=== PATIENT | female | born 1985 | race Caucasian/White ===

== ENCOUNTER 2023-01-31 23:06 | Emergency (ER) | payer MEDICAID, SELFPAY ==
[2023-01-31 23:11] VITALS: BP 115/63; PULSE 95; RESP 18; TEMP 36.9; O2SAT 100; BMI 39.5
[2023-02-01 00:18] VITALS: BP 105/45; PULSE 67; RESP 15; TEMP 36.4; O2SAT 99
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
--- OUTSIDE RECORDS SUMMARY | 2023-02-01 00:46 | XMS_ITS | Continuity of Care Document ---
Author Name Unknown Organization [facility] Address [address] [place] [phone]- Care Team Providers Care Compliance Advisor Name Role Phone Lonnie Oliveira MD [id number] Date[facility] - [facility] [address] [place] [id number] Attending Physician: Mckenzie Slaughter MD Admitting Physician: Mckenzie Slaughter MD Referring Physician: Lonnie Oliveira MD Allergies, Adverse Reactions, Alerts No Known Medication Allergies Medications acetaminophen 500 mg oral capsule 1 capsule = 500 mg, By Mouth, Every 4 hours, PRN for pain, # 60 capsule, 3 Refills, Acute 09/13/22 14:30:00 EDT, 09/13/21 14:28:00 EDT, Capsule, [facility] #[id number], Partial fill upon patientrequest if the prescription is for a schedule II op... Start Date: 09/13/21 Stop Date: 09/13/22 Status: Ordered diclofenac 1% topical gel 1 application, Topically, 4 times a day, # 100 Gm, 3 Refills, Maintenance, 09/13/21 14:29:00 EDT, Gel, [facility] #[id number], Partial fill upon patient request if the prescription is for a schedule II opioid drug., 163, cm, 09/13/21 13:54:00 EDT... Start Date: 09/13/21 Status: Ordered naproxen 500 mg oral delayed release tablet 1 tablet = 500 mg, By Mouth, 2 times a day, # 60 tablet, 3 Refills, Acute 09/13/22 14:29:00 EDT, 09/13/21 14:28:00 EDT, EC Tablet, [facility] #[id number], Partial fill upon patient request if the prescription is for a schedule II opioid drug., 16... Start Date: 09/13/21 Stop Date: 09/13/22 Status: Ordered Problem List Condition Effective Dates Status Health Status Inform ant Greater trochanteric bursitis(Confirmed) Active Obese class II(Confirmed) Active
--- OUTSIDE RECORDS SUMMARY | 2023-02-01 00:46 | XMS_ITS | Continuity of Care Document ---
Author Name Unknown Organization [facility] Address [address] [place] [id number]- Care Team Providers Care Electric Detector Operator Name Role Phone Tee MATOS, Lonnie Lagunas [id number] [address] [place] [phone]- Attending Physician: Pedro Pablo Perez MD Admitting Physician: Ana MATOS, Pedro Pablo Carnes Allergies, Adverse Reactions, Alerts No Known Medication Allergies Medications acetaminophen 500 mg oral capsule 1 capsule = 500 mg, By Mouth, Every 4 hours, PRN for pain, # 60 capsule, 3 Refills, Acute 09/13/22 14:30:00 EDT, 09/13/21 14:28:00 EDT, Capsule, [id number], Partial fill upon patientrequest if the prescription is for a schedule II op... Start Date: 09/13/21 Stop Date: 09/13/22 Status: Ordered diclofenac 1% topical gel 1 application, Topically, 4 times a day, # 100 Gm, 3 Refills, Maintenance, 09/13/21 14:29:00 EDT, Gel, [facility] #[id number], Partial fill upon patient request if the prescription is for a schedule II opioid drug., 163, cm, 09/13/21 13:54:00 EDT... Start Date: 09/13/21 Status: Ordered naproxen 500 mg oral delayed release tablet 1 tablet = 500 mg, By Mouth, 2 times a day, # 60 tablet, 3 Refills, Acute 09/13/22 14:29:00 EDT, 09/13/21 14:28:00 EDT, EC Tablet, [facility] #[id number], Partial fill upon patient request if the prescription is for a schedule II opioid drug., 16... Start Date: 09/13/21 Stop Date: 09/13/22 Status: Ordered Problem List Condition Effective Dates Status Health Status Inform ant Greater trochanteric bursitis(Confirmed) Active Obese class II(Confirmed) Active
--- OUTSIDE RECORDS SUMMARY | 2023-02-01 00:46 | XMS_ITS | Continuity of Care Document ---
Author Name Unknown Organization [facility] Address [address] [place] [phone]- Care Team Providers Care Contract Negotiation Manager Name Role Phone Tee MATOS, Lonnie Lagunas [id number] [address] [place] [address]- Allergies, Adverse Reactions, Alerts No Known Medication Allergies Medications acetaminophen 500 mg oral capsule 1 capsule = 500 mg, By Mouth, Every 4 hours, PRN for pain, # 60 capsule, 3 Refills, Acute 09/13/22 14:30:00 EDT, 09/13/21 14:28:00 EDT, Capsule, [facility] #[id number], Partial fill upon patientrequest if the prescription is for a schedule II op... Start Date: 09/13/21 Stop Date: 09/13/22 Status: Ordered diclofenac 1% topical gel 1 application, Topically, 4 times a day, # 100 Gm, 3 Refills, Maintenance, 09/13/21 14:29:00 EDT, Gel, [facility] #[id number], Partial fill upon patient request if the prescription is for a schedule II opioid drug., 163, cm, 09/13/21 13:54:00 EDT... Start Date: 09/13/21 Status: Ordered naproxen 500 mg oral delayed release tablet 1 tablet = 500 mg, By Mouth, 2 times a day, # 60 tablet, 3 Refills, Acute 09/13/22 14:29:00 EDT, 09/13/21 14:28:00 EDT, EC Tablet, [facility] #[id number], Partial fill upon patient request if the prescription is for a schedule II opioid drug., 16... Start Date: 09/13/21 Stop Date: 09/13/22 Status: Ordered Problem List Condition Effective Dates Status Health Status Inform ant Greater trochanteric bursitis(Confirmed) Active Obese class II(Confirmed) Active
--- OUTSIDE RECORDS SUMMARY | 2023-02-01 00:46 | XMS_ITS | Continuity of Care Document ---
Author Name Unknown Organization [facility] Address [address] [place] [id number]- Care Team Providers Care Underwriting Technician Name Role Phone Lonnie Oliveira MD Primary Care Physician [id number] Date(s): 10/04/21 - 11/03/21 [facility] [address] [place] [id number] Attending Physician: Sweta Baez Admitting Physician: Sweta Baez Referring Physician: AdmtrSweta Allergies, Adverse Reactions, Alerts No Known Medication Allergies Medications acetaminophen 500 mg oral capsule 1 capsule = 500 mg, By Mouth, Every 4 hours, PRN for pain, # 60 capsule, 3 Refills, Acute 09/13/22 14:30:00 EDT, 09/13/21 14:28:00 EDT, Capsule, [facility] #[id number], Partial fill upon patientrequest if the prescription is for a schedule II op... Start Date: 09/13/21 Stop Date: 09/13/22 Status: Ordered diclofenac 1% topical gel 1 application, Topically, 4 times a day, # 100 Gm, 3 Refills, Maintenance, 09/13/21 14:29:00 EDT, Gel, [facility] #[id number], Partial fill upon patient request if the prescription is for a schedule II opioid drug., 163, cm, 09/13/21 13:54:00 EDT... Start Date: 09/13/21 Status: Ordered naproxen 500 mg oral delayed release tablet 1 tablet = 500 mg, By Mouth, 2 times a day, # 60 tablet, 3 Refills, Acute 09/13/22 14:29:00 EDT, 09/13/21 14:28:00 EDT, EC Tablet, [facility] #[id number], Partial fill upon patient request if the prescription is for a schedule II opioid drug., 16... Start Date: 09/13/21 Stop Date: 09/13/22 Status: Ordered Problem List Condition Effective Dates Status Health Status Inform ant Greater trochanteric bursitis(Confirmed) Active Obese class II(Confirmed) Active
[2023-02-01 01:18] LABS: Basophils Percent Auto 0.4 % (0-2); Eosinophils Absolute Auto 0.1 X10*3/uL (0.0-0.4); Eosinophils Percent Auto 1.5 % (0-4); Hematocrit 30.9 % (37.0-47.0); Hemoglobin 7.9 g/dl (12.0-16.0); Imm Gran Abs Auto 0.02 X10*3/uL (0.00-0.03); Imm Gran Pct Auto 0.3 % (0.0-0.4); Lymphocytes Absolute Auto 1.7 X10*3/uL (1.2-4.9); MANUAL DIFF FLAG SCAN; Mean Corpuscular HGB Conc 25.6 g/dl (31.0-35.0); Mean Corpuscular Hemoglobin 15.1 pg (27.0-33.0); Monocytes Absolute Auto 0.7 X10*3/uL (0.1-1.2); Monocytes Percent Auto 8.7 % (2-11); Neutrophils Percent Auto 67.1 % (45-73); PLT CLUMP 1; Red Blood Count 5.22 X10*6/uL (4.20-5.50); Red Cell Distribution Width 23.5 % (11.0-16.0); SCAN SMEAR FLAG 1
[2023-02-01 01:23] LABS: Mean Corpuscular Volume 59.2 fL (80.0-98.0); White Blood Count 7.5 X10*3/uL (4.8-10.8)
[2023-02-01 01:29] LABS: Alanine Aminotransferase 8 U/L (0-31); Albumin Level 3.9 g/dL (3.5-5.0); Alkaline Phosphatase 98 U/L (39-117); Anion Gap 12 (12-20); Aspartate Amino Transferase 14 U/L (5-31); Bilirubin Total 0.2 mg/dL (0.0-1.0); Blood Urea Nitrogen 11 mg/dL (9-16); Calcium 8.7 mg/dL (8.4-10.2); Carbon Dioxide 25 mmol/L (22-29); Chloride 109 mmol/L (96-108); Creatinine Clr Calc Pharmacy 137.3; Estimated Glomerular Filt Rate > 60; Glucose Random 79 mg/dL (60-115); Potassium 3.7 mmol/L (3.3-5.1); Sodium 142 mmol/L (135-145); Total Protein 7.4 g/dL (6.5-8.0)
[2023-02-01 01:47] LABS: Platelet Count 265 X10*3/uL (160-400); SLIDE REVIEW VERIFIED
[2023-02-01] MEDS: Amoxicillin/Potassium Clav 875 MG TABLET PO (01:55)
[2023-02-01] MEDS: Diphth,Pertus(ACell),Tet Adult 0.5 ML SYRINGE IM (01:55)
[2023-02-01 03:56] LABS: HBS Num1 > 1000.00 mIU/mL (0-7.99); HBc Num1 0.09 S/CO (0.00-0.79); HBsAGNum1 0.34 S/CO (0.00-0.99); HIV AB/AG Nonreactive (Nonreactive); HIV Num 1 0.04 S/CO (0.00-0.99); Hepatitis B Core Antibody Nonreactive (Nonreactive); Hepatitis B Surface Antigen Negative (Negative); ~HepC Num1 0.08 S/CO (0.00-0.79); ~Hepatitis B Surface Antibody REACTIVE (Nonreactive); ~Hepatitis C Antibody Nonreactive (Nonreactive)
== END 2023-02-01 02:01 | disposition home or self-care (01) ==
PROVIDERS: Physician Assistant Medical; Emergency Provider Emergency Medicine
DX: S60.470A Other superficial bite of right index finger, initial encounter (principal); W50.3XXA Accidental bite by another person, initial encounter; Y93.F9 Activity, other caregiving; Y92.89 Other specified places as the place of occurrence of the external cause; Y99.0 Civilian activity done for income or pay; M79.644 Pain in right finger(s); Z23 Encounter for immunization
CPT/HCPCS: 36415; 80053; 85025; 86704; 86706; 86803; 87340; 87389; 90471; 90715; 99282; 99284

== ENCOUNTER 2025-06-22 08:48 | Emergency (ER) | payer SELFPAY ==
--- NOTE | ~2025-06-22 | CT_ITS ---
EXAMINATION: CT ANGIOGRAM HEAD AND NECK CLINICAL INFORMATION: 39-year-old female, dizziness and vomiting. COMPARISON: No prior available. TECHNIQUE: Noncontrast axial imaging of the head was performed. This was followed by test bolus sequences and head and neck intravenous bolus administration 70 mL of Omnipaque 350. Helical imaging was performed in the axial plane from the aortic arch to the skull vertex. The data was processed at the optometric technologist's workstation for generation of MIP sequences. Angled MIPs and volume rendered reformatted images were also generated at an offline 3D workstation. Stenoses are assessed in accordance with NASCET criteria unless otherwise indicated. This CT examination was performed using dose optimization techniques as appropriate, variously including the following: *Automated exposure control *Adjustment of mA and/or kV according to patient size (this includes techniques or standardized protocols for targeted exams where dose is matched to indication/reason for exam; i.e. extremities or head) *Use of iterative reconstruction technique FINDINGS: NONCONTRAST HEAD CT: There is no evidence of intracranial hemorrhage or extra-axial fluid collection. There is no mass effect, or edema. No CT evidence of acute territorial infarct. Ventricles, sulci, and cisterns are normal in size and configuration for patient age. No hydrocephalus. No midline shift. No significant white matter abnormalities. Normal-appearing sella. Globes and orbital contents image normally. No extracranial soft tissue abnormalities. Near-complete opacification of the left maxillary sinus with frothy secretions and air-fluid level. Air-fluid level in the right maxillary sinus. The mastoid air cells, and tympanic cavities are normally aerated. No suspicious bony abnormalities. NECK CTA: -AORTIC ARCH: Normal in caliber. No significant atheromatous calcification. Three-vessel branching pattern. -GREAT VESSEL ORIGINS: Widely patent. No stenosis. -RIGHT COMMON CAROTID ARTERY: Normal in course and caliber to the level of the bifurcation. -CERVICAL RIGHT INTERNAL CAROTID ARTERY: Normal opacification without focal stenosis or occlusion. -LEFT COMMON CAROTID ARTERY: Normal in course and caliber to the level of the bifurcation. -CERVICAL LEFT INTERNAL CAROTID ARTERY: Normal opacification without focal stenosis or occlusion. -CERVICAL RIGHT VERTEBRAL ARTERY: Codominant. Normal in course and caliber into the skull base. -CERVICAL LEFT VERTEBRAL ARTERY: Codominant. Normal in course and caliber into the skull base. OTHER, SOFT TISSUES: -No lymphadenopathy or mass. No abnormal fluid collection or soft tissue swelling. -Normal thyroid. -Imaged superior mediastinal structures normal. -Imaged lung apices clear. CTA OF THE BRAIN: -INTRACRANIAL INTERNAL CAROTID ARTERIES: No focal stenosis or occlusion. Normal ophthalmic artery origins. No aneurysm. -RIGHT ANTERIOR CEREBRAL ARTERY: Normal A1 segment. Normal arborization of the distal segments. -LEFT ANTERIOR CEREBRAL ARTERY: Normal A1 segment. Normal arborization of the distal segments. -ANTERIOR COMMUNICATING ARTERY: Normal. -RIGHT MIDDLE CEREBRAL ARTERY: Normal M1 segment of the MCA without focal stenosis or occlusion. Normal bifurcation. Normal arborization of the distal segments. -LEFT MIDDLE CEREBRAL ARTERY: Normal M1 segment of the MCA without focal stenosis or occlusion. Normal bifurcation. Normal arborization of the distal segments. -RIGHT VERTEBRAL ARTERY V4: Normal in course and caliber. Extradural takeoff of the right PICA branch. -LEFT VERTEBRAL ARTERY V4: Normal in course and caliber. Extradural takeoff of the left PICA branch. -BASILAR ARTERY: Normal without focal stenosis or occlusion. Normal appearance of the proximal superior cerebellar arteries. Normal basilar tip. -RIGHT POSTERIOR CEREBRAL ARTERY: Normal P1 segment. Normal opacification of the distal SUPERVISOR [employer]ER SERVICE segments. -LEFT POSTERIOR CEREBRAL ARTERY: Normal P1 segment. Normal opacification of the distal SUPER[employer]OR [employer]ICE segments. -POSTERIOR COMMUNICATING ARTERIES: Present patent bilaterally. Normal opacification of the superior sagittal, straight, transverse, and sigmoid sinuses. No venous thrombosis. CT/CT angio head neck IMPRESSION: NON-CONTRAST HEAD CT: 1. No intracranial hemorrhage or mass effect. No CT evidence of acute territorial infarct. 2. Left greater than right maxillary sinus mucosal thickening and fluid, findings which could reflect acute sinusitis in the appropriate clinical setting. CTA NECK: 1. No evidence of significant stenosis, occlusion, dissection, or aneurysm of the major cervical arterial vasculature. CTA HEAD: 1. No evidence of significant stenosis, occlusion, dissection, or aneurysm of the intracranial arterial vasculature. 2. The major cortical and dural venous sinuses are patent. Electronically signed by: Aubrey Archuleta MD 06/22/2025 12:18 PM [facility]
[2025-06-22 08:56] VITALS: BP 105/61; PULSE 77; RESP 16; TEMP 36.3; O2SAT 100; BMI 34.3
--- NOTE | 2025-06-22 08:59 | ECG_ITS ---
Test Reason : dizziness Blood Pressure : */* mmHG Vent. Rate : 66 BPM Atrial Rate : 66 BPM P-R Int : 146 ms QRS Dur : 72 ms QT Int : 406 ms P-R-T Axes : 51 -6 8 degrees QTcB Int : 425 ms Normal sinus rhythm Normal ECG When compared with ECG of 04-Jun-2018 10:29, No significant change was found Referred By: Generic ED Physician Electronically Signed By: CATARINO SINGLETON
[2025-06-22 09:13] LABS: Hematocrit 28.9 % (37.0-47.0); Hemoglobin 7.3 g/dl (12.0-16.0); Imm Gran Abs Auto 0.01 X10*3/uL (0.00-0.03); Imm Gran Pct Auto 0.2 % (0.0-0.4); Lymphocytes Absolute Auto 1.4 X10*3/uL (1.2-4.9); Mean Corpuscular HGB Conc 25.3 g/dl (31.0-35.0); Mean Corpuscular Hemoglobin 13.9 pg (27.0-33.0); NRBC Abs Auto 0.000 X10*3/uL (0.0-0.012); NRBC Pct Auto 0.0 /100WBC (0.0-0.2); Platelet Count 403 X10*3/uL (160-400); Red Blood Count 5.27 X10*6/uL (4.20-5.50); White Blood Count 5.6 X10*3/uL (4.8-10.8)
[2025-06-22 09:16] LABS: Mean Corpuscular Volume 54.8 fL (80.0-98.0)
[2025-06-22 09:17] LABS: MANUAL DIFF FLAG SCAN
[2025-06-22 09:31] LABS: Alanine Aminotransferase 12 U/L (0-31); Albumin Level 4.0 g/dL (3.5-5.0); Alkaline Phosphatase 78 U/L (39-117); Anion Gap 10 (12-20); Aspartate Amino Transferase 19 U/L (5-31); Blood Urea Nitrogen 12 mg/dL (9-16); Calcium 8.4 mg/dL (8.4-10.2); Carbon Dioxide 28 mmol/L (22-29); Chloride 107 mmol/L (96-108); Creatinine Clr Calc Pharmacy 137.2; Estimated Glomerular Filt Rate > 60; Potassium 4.0 mmol/L (3.3-5.1); Sodium 141 mmol/L (135-145); Total Protein 7.4 g/dL (6.5-8.0)
[2025-06-22 09:42] LABS: Troponin-I High Sensitivity < 2.7 ng/L (<3.5-17.0)
[2025-06-22 10:03] VITALS: BP 100/56; PULSE 68
[2025-06-22 10:06] VITALS: BP 92/57; PULSE 69
[2025-06-22 10:08] VITALS: BP 93/62; PULSE 74
--- OUTSIDE RECORDS SUMMARY | 2025-06-22 10:21 | XMS_ITS | Clinical Summary ---
Author Organization [facility] ity Address [address] [place] [address] Care Team Providers Care Cable Ferry Operator Name Role Phone Severino Cormier MD Primary Care Provider [phone] Surgical History Surgery Date Site/Laterality Comments TUBAL LIGATION PROCEDURE: HISTORICAL TUBAL LIGATION SECTION PROCEDURE: HISTORICAL DELIVERY GASTRIC BYPASS 2018 PROCEDURE: [place] GASTRIC RSTCV W/BYP W/SM INT RCNSTJ LIMIT ABSRPJ Medical History Medical History Date Comments GERD (gastroesophageal reflux disease) DX:GERD (gastroesophageal reflux disease) Family History Medical History Relation Name Comments Breast cancer Aunt P.AUNT No Known Problems Brother 1 No Known Problems Brother 2 Diabetes Father No Known Problems Maternal Grandmother Diabetes Mother Hypertension Mother Breast cancer Other M. COUSINS X 2 No Known Problems Sister 1 No Known Problems Sister 2 Ovarian cancer Neg Hx Uterine cancer Neg Hx Relation Name Status Comments Aunt P.AUNT Brother 1 Alive Brother 2 Alive Father Maternal Grandfather Alive Maternal Grandmother Mother Alive Other M. COUSINS X 2 Alive Paternal Grandfather Paternal Grandmother Sister 1 Alive Sister 2 Alive Social History Tobacco Use Types Packs/Day Years Used Date Smoking Tobacco: Never Smokeless Tobacco: Never Alcohol Use Standard Drinks/Week Comments Yes 0 (1 standard drink = 0.6 oz pur e alcohol) Comments Unknown Sex and Gender Information Value Date Recorded Sex Assigned at Not on file Legal Sex Female 10:47 PM EST Gender Identity Not on file Sexual Orientation Not on file Plan of Treatment Health Maintenance Due Date Last Done Comments Hepatitis B Vaccines (1 of 3 - 19+ 3-dose series) 2004 HPV Vaccines (1 - 3-dose SCD M series) 2012 Cholesterol Screening (Lipid Panel) 06/01/2022 HIV Screening 06/01/2022 Hepatitis C Screening 06/01/2022 Social Influencers of Health Screening 06/01/2022 Hypertension/CHF/CAD Annual BMP Blood Test 06/08/2022 Cervical Cancer Screening: P ap Smear 08/10/2022 08/10/2019, 06/18/2018 Depression Screening 06/23/2024 COVID-19 Vaccine (3 - 2024-2 6 season) 2025 11/14/2020, 10/17/2020 Influenza Vaccine (#1) 2025 9, 03/16/2018, 07/28/2017 DTaP,Tdap,and Td Vaccines (2 - Td or Tdap) 05/22/2028 05/22/2018 RSV Immunization Adult Patients (1 - 1-dose 75+ series) 2060 Meningococcal ACWY Vaccine Aged Out 03/23/2019 N o longer eligible based on patient's age to complete this topic HIB Vaccines Aged Out No longer eligi ble based on patient's age to complete this topic Hepatitis A Vaccines Aged Out No long er eligible based on patient's age to complete this topic IPV Vaccines Aged Out No longer eligi ble based on patient's age to complete this topic MMR Vaccines Aged Out No longer eligi ble based on patient's age to complete this topic Meningococcal B Vaccine Aged Out No l onger eligible based on patient's age to complete this topic Pneumococcal Vaccine: Pediatrics (0 to 5 Years) and At-Risk Patients (6 to 49 Years) Aged Out No longer eligible b ased on patient's age to complete this topic RSV Immunization Patients Under 20 months Aged Out No longer eligible b ased on patient's age to complete this topic Varicella Vaccines Aged Out No longer eligible based on patient's age to complete this topic Procedures Procedure Name Priority Date/Time Associated Diagnosis Comments PAP SMEAR Routine 08/10/2019 from Last 3 Months or Most Recently Relevant to Health Maintenance Results * Pap smear (08/10/2019) 08/10/2019 Narrative HISTORICAL TESTING LAB RESULTING AGENCY - 08/16/2019 10:45 AM EST [id number] THINPREP PAP, IMAGED: NEGATIVE FOR SQUAMOUS INTRAEPITHELIAL LESION AND MALIGNANCY . REACTIVE CELLULAR CHANGES. CLUE CELLS ARE PRESENT. JUAN ALBERTO PAREKH(ASCP) (CASE SCREENED 08 13 2019) JESI SOUSA M.D. , PATHOLOGIST (CASE ELECTRONICALLY SIGNED 08 13 2019) RESULT OF APTIMA HIGH RISK HPV ASSAY: HIGH RISK HPV: NEGATIVE (SEROTYPES 16,18,31,33,35,39,45,51,52,56,58,59,66,68) COMPLETED ON 2019-08-13 ADEQUACY: SATISFACTORY ENDOCERVICAL/TRANSFORMATION ZONE COMPONENT PRESENT. SOURCE: THINPREP PAP HPV ANY DX: REFLEX 16 AND 18, CERVICAL, IMAGED CLINICAL INFORMATION: HPV ANY DIAGNOSIS. HORMONES, PAP HX 2018 ATYPICAL ENDOMETRIAL CELLS, EMB INSUFFICIENT ENDOMETRIAL TISSUE, LMP 07/15/19 [Z12.4, Z01.419] Josiane Duran [facility] LAB CYTOLOGY ORDERABLES Final Result HISTORICAL TESTING LAB RESULTING AGENCY from Last 3 Months or Most Recently Relevant to Health Maintenance Care Teams Cable Ferry Operator Relationship Specialty Start Date End Date Severino Cormier MD [facility] [place] [address] PCP - General Internal Medicine 11/28/20
--- NOTE | 2025-06-22 10:36 | ED_ITS ---
HPI - Fall General Chief Complaint: Fall Stated Complaint: fall t-1, dizziness with facial pain Time Seen by Provider: 06/22/25 09:37 Source: patient Mode of arrival: ambulatory Limitations: no limitations History of Present Illness ED Provider: KIYA EDMONDS PA-C HPI Narrative: 39-year-old female with pmhx significant for iron-deficiency anemia presents to the ED today for evaluation of intermittent dizziness x1 week. She describes these as a room spinning sensation, primarily when she is up walking. However, these episodes also occur when she wakes up in the morning and turns over in bed. They last for a few seconds at most before completely resolving. She reports she was moving her car from one end of the drive way to the other yesterday, she exited her vehicle and began walking down the sidewalk when she felt dizzy, causing her to fall forward and strike the front of her head on a wall. Reports brief LOC lasting only a few minutes before her friend rushed over to her and assisted her up. Denies thinners. After her head strike, she felt nauseous and vomited. No vomiting since. At present, she denies any dizziness. Endorses mild headache to the front of her head where she sustained the head strike. Denies any vision changes, neck pain, chest pain, SOB, palpitations, N/V, cough, LE pain/swelling. Denies prior hx of vertigo. She reports history of iron-deficiency anemia, she takes her iron supplements when she remembers to. Related Data Previous Rx's ?Medication ?Instructions ?Recorded amoxicillin 875 mg-potassium 1 tab PO BID 7 days #14 t abs 02/01/23 clavulanate 125 mg tablet meclizine 25 mg tablet 25 mg PO TID PRN dizziness 1 4 days 06/22/25 #42 tabs Allergies Allergy/AdvReac Type Severity Reaction Status Date / Time No Known Allergies (No Known Allergy Verified 06/22/25 08:58 Allergies*) Review of Systems 2 Review of Systems: Yes all other systems are reviewed and are negative PMFSH Past Medical History Attestation statement: The following information was validated with the patient. Source: old records reviewed and nursing notes reviewed Physical Exam 2 Vital Signs: Vital Signs: Last Vital Signs Temp 97.8 F 06/22/25 13:23 Pulse 73 06/22/25 13:23 Resp 15 06/22/25 13:23 BP 101/66 06/22/25 13:23 Pulse Ox 100 06/22/25 13:23 O2 Del Method Room Air 06/22/25 13:23 BMI result Body Mass Index 34.3 vital signs stable General: Well appearing, in no acute distress. Skin: Warm, dry, intact. No rashes or lesions. Head: Normocephalic, atraumatic. no racoon eyes, battles sign. no palpable skull fracture, hematoma, step off. EENT: Hearing is intact b/l. Conjunctiva clear. PERRLA. EOM intact w/o entrapment or pain. Moist mucous membranes.? Neck: no midline c spine tenderness, no step off, FROM intact to c spine. Cardiac: Chest wall symmetric. RRR Lungs: Normal respiratory effort without accessory muscle use. CTA bilaterally Abdomen: Soft, non-tender, non-distended. No rebound tenderness or guarding. Positive BS x4. Back: No midline spinous or paraspinal tenderness. No step off deformity. Ext: Upper and lower extremities atraumatic, without tenderness, deformity, swelling or erythema. Full ROM throughout Neuro: AOx3. Normal speech. Normal finger to nose, heel to santos. ambulating with steady gait - no ataxia. NIH 0. Strength 5/5 intact throughout. Sensation intact to light touch. NV intact distally. Course Course Course Narrative: CBC without leukocytosis or left shift. Microcytic anemia, H7H appears around patient?s baseline iron deficiency anemia.? She is not very compliant with her supplements at home howwver I do not suspect that this is the cause of patients symptoms. She will need to f/u with PCP for further management. she is above transfusion threshold. Chemistry without acute electrolyte abnormality requiring intervention. No JOSH. Liver function wnl. Trop undetectable. Ekg non ischemic.? Cta head/neck unremarkable.? > on re-eval, patient reports significant improvement in symptoms with IVF and meclizine. I was able to get her up and ambulating around the ED without any reported dizziness. Ambulating w/ steady gait.? > will d/c her with meclizine and PCP follow up. Discussed anemia - will continue supplementation at home with PCP follow up. Patient has remained stable throughout ED visit today. Discussed worrisome signs and symptoms and when to return to the ED. All questions answered at this time. Patient is agreeable with disposition and stable for discharge. Medications Administered Discontinued Medications Generic Name Dose Route Start Last Admin Trade Name Jacinto PRN Reason Stop Dose Admin Sodium Chloride 1,000 mls @ 999 mls/hr 06/22/25 10:15 06/22/25 12:35 Ns IV 06/22/25 11:15 Infused .Q1H1M ARLEY Infusion Iohexol 100 ml 06/22/25 11:31 06/22/25 11:31 Iohexol 350 Mg/Ml 100 Ml Infus..Btl IV 06/22/25 11:32 70 ml ONCE ONE Administration Meclizine HCl 25 mg 06/22/25 10:03 06/22/25 10:18 Meclizine Hcl 25 Mg Tablet PO 06/22/25 10:04 25 mg ONCE ONE Administration Medical Decision Making Medical Decision Making [facility] Narrative: 39-year-old female with pmhx significant for iron-deficiency anemia presents to the ED today for evaluation of intermittent dizziness x1 week. This patient presents with dizziness, most consistent with a peripheral cause, likely vertigo.? Differential diagnoses includes: viral syndrome, anemia, electrolyte abnormality, hypoglycemia, orthostatic hypotension, dehydration, BPPV vs labrynthitis. No red flag features for central vertigo to include gradual onset, vertical/bidirectional or nonfatigable nystagmus, focal neurologic findings on exam (including inability to ambulate). Presentation not consistent with an acute MANAGER RECOVERY infection, vertebral basilar artery insufficiency, cerebellar hemorrhage or infarction,?intracranial mass or bleed, temporal lobe epilepsy,?MS, trauma, complex migraine headache. I have also considered ACS, arrhythmia, PE (PERC 0), pneumonia, UTI. Plan: labs, ekg, orthostatic vitals, trial of IVF +meclizine, supportive care, serial reassessment Differential Diagnosis Differential Diagnoses: The differential diagnosis associated with the presentation includes as above. Admission/Observation not indicated. Lab Data [facility] Lab Attestation statement: I reviewed the patient's lab results. as above. 06/22/25 09:05 06/22/25 09:05 Labs: Lab Results 06/22/25 Range/Units 09:05 WBC 5.6 (4.8-10.8) X10*3/uL RBC 5.27 (4.20-5.50) X10*6/uL Hgb 7.3 L (12.0-16.0) g/dl Hct 28.9 L (37.0-47.0) % MCV 54.8 L (80.0-98.0) fL MCH 13.9 L (27.0-33.0) pg MCHC 25.3 L (31.0-35.0) g/dl RDW 23.9 H (11.0-16.0) % Plt Count 403 H D (160-400) X10*3/uL MPV TNP Immature Gran % (Auto) 0.2 (0.0-0.4) % Neut % (Auto) 66.3 (45-73) % Lymph % (Auto) 25.4 (20-40) % Shelby % (Auto) 6.2 (2-11) % Eos % (Auto) 1.4 (0-4) % Baso % (Auto) 0.5 (0-2) % Lymph # (Auto) 1.4 (1.2-4.9) X10*3/uL Shelby # (Auto) 0.4 (0.1-1.2) X10*3/uL Eos # (Auto) 0.1 (0.0-0.4) X10*3/uL Baso # (Auto) 0.0 (0.0-0.2) X10*3/uL Abs Immat Gran (auto) 0.01 (0.00-0.03) X10*3/uL Absolute Neuts (auto) 3.7 (2.0-8.3) x10*3/uL Absolute Nucleated RBC 0.000 (0.0-0.012) X10*3/uL Nucleated RBC % (auto) 0.0 (0.0-0.2) /100WBC Smear Tech's Comments VERIFIED Sodium 141 (135-145) mmol/L Potassium 4.0 (3.3-5.1) mmol/L Chloride 107 (96-108) mmol/L Carbon Dioxide 28 (22-29) mmol/L Anion Gap 10 L (12-20) BUN 12 (9-16) mg/dL Creatinine 0.60 (0.5-1.4) mg/dL Estim Creat Clear Calc 137.2 Estimated GFR > 60 Random Glucose 82 (60-115) mg/dL Calcium 8.4 (8.4-10.2) mg/dL Total Bilirubin 0.2 (0.0-1.0) mg/dL AST 19 (5-31) U/L ALT 12 (0-31) U/L Alkaline Phosphatase 78 (39-117) U/L Troponin I High Sens < 2.7 (<3.5-17.0) ng/L Total Protein 7.4 (6.5-8.0) g/dL Albumin 4.0 (3.5-5.0) g/dL Beta-Hydroxybutyrate Cancelled Beta HCG, Quant < 2 mIU/mL Independent Interpretation I performed an independent interpretation of an: EKG and CT Scan Interpretation: cta head/neck without any significant stenosis ekg EKG showing normal sinus rhythm, rate of 66 beats per minute, no acute ischemic changes or ST elevations. Radiology Impression Discussion of test interpretation with radiology: I have reviewed the radiologist's reading. Radiologist Impression: Procedure(s): CT angio head neck Accession Number(s): [id number] cc: Physician,Unknown ; Kiya Edmonds~ Report Number: [id number]: Total DLP = 1547.00 mGy-cm Reason for Exam: dizziness, vomiting EXAMINATION: CT ANGIOGRAM HEAD AND NECK CLINICAL INFORMATION: 39-year-old female, dizziness and vomiting. COMPARISON: No prior available. TECHNIQUE: Noncontrast axial imaging of the head was performed. This was followed by test bolus sequences and head and neck intravenous bolus administration 70 mL of Omnipaque 350. Helical imaging was performed in the axial plane from the aortic arch to the skull vertex. The data was processed at the educational technologist's workstation for generation of MIP sequences. Angled MIPs and volume rendered reformatted images were also generated at an offline 3D workstation. Stenoses are assessed in accordance with NASCET criteria unless otherwise indicated. This CT examination was performed using dose optimization techniques as appropriate, variously including the following: *Automated exposure control *Adjustment of mA and/or kV according to patient size (this includes techniques or standardized protocols for targeted exams where dose is matched to indication/reason for exam; i.e. extremities or head) *Use of iterative reconstruction technique FINDINGS: NONCONTRAST HEAD CT: There is no evidence of intracranial hemorrhage or extra-axial fluid collection. There is no mass effect, or edema. No CT evidence of acute territorial infarct. Ventricles, sulci, and cisterns are normal in size and configuration for patient age. No hydrocephalus. No midline shift. No significant white matter abnormalities. Normal-appearing sella. Globes and orbital contents image normally. No extracranial soft tissue abnormalities. Near-complete opacification of the left maxillary sinus with frothy secretions and air-fluid level. Air-fluid level in the right maxillary sinus. The mastoid air cells, and tympanic cavities are normally aerated. No suspicious bony abnormalities. NECK CTA: -AORTIC ARCH: Normal in caliber. No significant atheromatous calcification. Three-vessel branching pattern. -GREAT VESSEL ORIGINS: Widely patent. No stenosis. -RIGHT COMMON CAROTID ARTERY: Normal in course and caliber to the level of the bifurcation. -CERVICAL RIGHT INTERNAL CAROTID ARTERY: Normal opacification without focal stenosis or occlusion. -LEFT COMMON CAROTID ARTERY: Normal in course and caliber to the level of the bifurcation. -CERVICAL LEFT INTERNAL CAROTID ARTERY: Normal opacification without focal stenosis or occlusion. -CERVICAL RIGHT VERTEBRAL ARTERY: Codominant. Normal in course and caliber into the skull base. -CERVICAL LEFT VERTEBRAL ARTERY: Codominant. Normal in course and caliber into the skull base. OTHER, SOFT TISSUES: -No lymphadenopathy or mass. No abnormal fluid collection or soft tissue swelling. -Normal thyroid. -Imaged superior mediastinal structures normal. -Imaged lung apices clear. CTA OF THE BRAIN: -INTRACRANIAL INTERNAL CAROTID ARTERIES: No focal stenosis or occlusion. Normal ophthalmic artery origins. No aneurysm. -RIGHT ANTERIOR CEREBRAL ARTERY: Normal A1 segment. Normal arborization of the distal segments. -LEFT ANTERIOR CEREBRAL ARTERY: Normal A1 segment. Normal arborization of the distal segments. -ANTERIOR COMMUNICATING ARTERY: Normal. -RIGHT MIDDLE CEREBRAL ARTERY: Normal M1 segment of the MCA without focal stenosis or occlusion. Normal bifurcation. Normal arborization of the distal segments. -LEFT MIDDLE CEREBRAL ARTERY: Normal M1 segment of the MCA without focal stenosis or occlusion. Normal bifurcation. Normal arborization of the distal segments. -RIGHT VERTEBRAL ARTERY V4: Normal in course and caliber. Extradural takeoff of the right PICA branch. -LEFT VERTEBRAL ARTERY V4: Normal in course and caliber. Extradural takeoff of the left PICA branch. -BASILAR ARTERY: Normal without focal stenosis or occlusion. Normal appearance of the proximal superior cerebellar arteries. Normal basilar tip. -RIGHT POSTERIOR CEREBRAL ARTERY: Normal P1 segment. Normal opacification of the distal [employer]BILE HOME LABORER segments. -LEFT POSTERIOR CEREBRAL ARTERY: Normal P1 segment. Normal opacification of the distal [employer]BI[employer] HOME [employer]ORER segments. -POSTERIOR COMMUNICATING ARTERIES: Present patent bilaterally. Normal opacification of the superior sagittal, straight, transverse, and sigmoid sinuses. No venous thrombosis. CT/CT angio head neck IMPRESSION: NON-CONTRAST HEAD CT: 1. No intracranial hemorrhage or mass effect. No CT evidence of acute territorial infarct. 2. Left greater than right maxillary sinus mucosal thickening and fluid, findings which could reflect acute sinusitis in the appropriate clinical setting. CTA NECK: 1. No evidence of significant stenosis, occlusion, dissection, or aneurysm of the major cervical arterial vasculature. CTA HEAD: 1. No evidence of significant stenosis, occlusion, dissection, or aneurysm of the intracranial arterial vasculature. 2. The major cortical and dural venous sinuses are patent. External Record Review External record reviewed: Inpatient record Prescription Management I considered prescription management with: Other (Meclizine) Chronic Conditions Patient?s care impacted by: Other (anemia) Social Determinants Patient?s care significantly limited by Social Determinants of Health including: Other Social Determinant of Health Critical Care Time Critical Care Time Critical Care Time: No Discharge Plan Discharge Clinical Impression: Dizziness, Closed head injury Patient Disposition: Home, Self-Care Instructions: Head Injury (DC), Dizziness (ED) Additional Instructions: You were evaluated in the ED today for dizziness and a fall occurring yesterday. Your work up is reassuring. You were treated with medication and IV fluids today with improvement in your symptoms. I am sending meclizine to your pharmacy. Take this as prescribed for dizziness. Please make sure you are staying adequately hydrated. rest. limit screen time. Follow up with your PCP. Return with any new or worsening symptoms. In the case of an emergency call 911. Prescriptions: New meclizine 25 mg tablet 25 mg PO TID PRN (Reason: dizziness) 14 Days Qty: 42 0RF No Action amoxicillin-pot clavulanate 875-125 mg tablet 1 tab PO BID 7 Days Qty: 14 0RF Referrals: Physician,Unknown J [Primary Care Provider, Medical] Stand Alone Forms: Work/School Release Interventions: ED Discharge Assessment Last Done: 06/22/25 13:23 Discharge Date/Time: 06/22/25 13:23 Print Language: Afghan
[2025-06-22] MEDS: iohexoL 350 MG/ML 100 ML INFUS..BTL IV (11:31)
[2025-06-22 13:00] VITALS: BP 101/66; PULSE 73; RESP 15; TEMP 36.6; O2SAT 100
[2025-06-22 13:23] VITALS: BP 101/66; PULSE 73; RESP 15; TEMP 36.6; O2SAT 100
== END 2025-06-22 13:23 | disposition home or self-care (01) ==
PROVIDERS: Physician Assistant Medical; Emergency Provider Emergency Medicine Emergency Medical Services
DX: R42 Dizziness and giddiness (principal); D50.9 Iron deficiency anemia, unspecified; S09.90XA Unspecified injury of head, initial encounter; W18.39XA Other fall on same level, initial encounter; Y93.89 Activity, other specified; Y92.480 Sidewalk as the place of occurrence of the external cause; Y99.8 Other external cause status
CPT/HCPCS: 36415; 70496; 70498; 80053; 84484; 84702; 85025; 93005; 96360; 96361; 99284; 99285; Q9967

== ENCOUNTER → 2025-06-22 08:59 | Outpatient (BNV) | payer SELFPAY | PROVIDERS: Emergency Provider Emergency Medicine Emergency Medical Services; Visit Provider Internal Medicine | DX: R42 Dizziness and giddiness (principal) | CPT/HCPCS: 93010 ==

== ENCOUNTER → 2025-06-22 10:03 | Outpatient (BNV) | payer SELFPAY | PROVIDERS: Emergency Provider Emergency Medicine Emergency Medical Services; Visit Provider Radiology Diagnostic Radiology | DX: R42 Dizziness and giddiness (principal); R11.10 Vomiting, unspecified | CPT/HCPCS: 70496; 70498 ==